=== PATIENT | female | born 1955 | race Caucasian/White ===

== ENCOUNTER 2018-06-12 05:37 | Day surgery (SDC) | payer BC ==
[~2018-06-12 05:37] MED LIST: Buffered Lidocaine 1% SYRIN* 1 ML/SYRINGE INTRADERM ONE
[2018-06-12] MEDS ORDERED: Heparin VIAL(*) 5000 UNITS/ML VIAL (FIVE THOUSAND) ONE (05:59)
[2018-06-12] MEDS ORDERED: Famotidine IV* 10 MG/ML 2 ML (20 mg) ONE (05:59)
[2018-06-12] MEDS ORDERED: ceFAZolin 2 GM PREMIX in ORs 2 GM/50 ML BAG IVPB ONE (05:59)
[2018-06-12] MEDS ORDERED: Dexamethasone IV* 4 MG/ML 1 ML (4 MG) ONE (05:59)
[2018-06-12] MEDS ORDERED: Dexamethasone IV* 4 MG/ML 1 ML (4 MG) IV SLOW PU ONE (06:00)
[2018-06-12] MEDS ORDERED: Famotidine IV* 10 MG/ML 2 ML (20 mg) IV ONE (06:00)
[2018-06-12] MEDS ORDERED: Lactated Ringers 1000 ML Bag* 1,000 ML IV SCH (06:00)
[2018-06-12] MEDS ORDERED: Bupivacaine 0.5% W/EPI SDV* 30 ML VIAL ONE ×2 (06:32→11:05)
[2018-06-12] MEDS ORDERED: Lidocain 1% EPI 1:100,000 * 30 ML MDV ONE (06:32)
[2018-06-12] MEDS ORDERED: Lidocaine 1% INJ* 10 MG/ML 30 ML SDV ONE (06:32)
[2018-06-12] MEDS ORDERED: ROPIVACAINE 5 MG/ML 30 ML BTL (0.5%) ONE (06:33)
[2018-06-12] MEDS ORDERED: fentaNYL* 50 MCG/ML 2 ML VIAL (100 MCG VIAL) ONE ×2 (07:17→11:51)
[2018-06-12] MEDS ORDERED: Midazolam* 1 MG/ML 2 ML VIAL (2 MG) ONE (07:18)
[2018-06-12] MEDS ORDERED: Atracurium* 10 MG/ML 10 ML VIAL ONE (07:18)
[2018-06-12] MEDS ORDERED: Lidocaine 1% MPF wEPI 200,000* 30 ML SDV ONE (07:25)
[2018-06-12] MEDS ORDERED: Scopolamine 1.5 mg* PATCH ONE (07:29)
[2018-06-12] MEDS ORDERED: Morphine VIAL* 10 MG/ML 1 ML VIAL ONE (07:51)
[2018-06-12] MEDS ORDERED: Lidocaine 2% PF * 5 ML VIAL ONE (07:52)
[2018-06-12] MEDS ORDERED: Propofol* 10 MG/ML 20 ML BTL ONE (07:52)
[2018-06-12] MEDS ORDERED: Naloxone* 0.4 MG/ML 1 ML VIAL IV PRN (08:16)
[2018-06-12] MEDS ORDERED: Morphine VIAL* 4 MG/ML VIAL (1 ml vial) IV PRN (08:16)
[2018-06-12] MEDS ORDERED: Acetaminophen TAB* 325 MG PO PRN (08:16)
[2018-06-12] MEDS ORDERED: PROCHLORPERAZINE INJ 5 MG/ML 2 ML VIAL IV PRN (08:16)
[2018-06-12] MEDS ORDERED: DiMENhydriNATE IV* 50 MG/ML VIAL IV PUSH PRN (08:16)
[2018-06-12] MEDS ORDERED: Ketorolac INJ* 30 MG/ML 1 ML VIAL IV PRN (08:16)
[2018-06-12] MEDS ORDERED: fentaNYL* 50 MCG/ML 2 ML VIAL (100 MCG VIAL) IV PRN (08:16)
[2018-06-12] MEDS ORDERED: HYDROcodone/ACETAMIN 5-325 MG* 1 TAB PO PRN (08:16)
[2018-06-12] MEDS ORDERED: Desflurane* 240 ML INH ONE (10:23)
[2018-06-12] MEDS ORDERED: Ondansetron INJ* 2 MG/ML VIAL ONE (10:44)
[2018-06-12] MEDS ORDERED: Ketorolac INJ* 30 MG/ML 1 ML VIAL ONE (11:52)
[2018-06-12] MEDS ORDERED: Morphine VIAL* 4 MG/ML VIAL (1 ml vial) ONE (12:25)
[2018-06-12] MEDS ORDERED: HYDROcodone/ACETAMIN 5-325 MG* 1 TAB ONE (14:22)
[2018-06-12 14:38] VITALS: BP 112/83
== END 2018-06-12 15:06 | disposition home or self-care (01) ==
LOC: OR 05:37 → EEVIPCON 05:37 → OR 15:06
PROVIDERS: ATTEND Plastic Surgery
DX: N62 Hypertrophy of breast (principal)
CPT/HCPCS: 88305; A9270-GY; A9272; J0690; J1100; J1644; J1885; J2001; J2250; J2270; J2405; J2704; J2795; J3010

== ENCOUNTER 2018-10-09 08:01 | Emergency (ER) | payer BC ==
[2018-10-09 10:26] VITALS: BP 129/86
--- NOTE | 2018-10-09 10:37 | UC ---
General HPI - HPI Summary HPI Summary: 62-year-old female presents with 4 day history of general malaise, fatigue, body aches, shaking chills, nausea, and anorexia. Reports no known tick bites. Denies fever, rash, nasal congestion, runny nose, ear pain, sore throat, cough , chest pain, shortness of breath, abdominal pain, vomiting, diarrhea, dysuria, frequency, urgency, hematuria, or vaginal discharge. - History of Current Complaint Chief Complaint: UCGeneralIllness Stated Complaint: COLDCHILLS/WEAK/NO ERI Time Seen by Provider: 10/09/18 10:30 Hx Obtained From: Patient Pain Intensity: 6 - Allergy/Home Medications Allergies/Adverse Reactions: Allergies Allergy/AdvReac Type Severity Reaction Status Date / Time No Known Allergies Allergy Verified 10/09/18 08:32 PMH/Surg Hx/FS Hx/Imm Hx Previously Healthy: Yes - Denies significant PMH - Surgical History Surgical History: Yes Surgery Procedure, Year, and Place: VASCULAR SURGERY 2007 [facility] - Family History Known Family History: Positive: Non-Contributory - Social History Occupation: Employed Full-time Lives: With Family Alcohol Use: Rare Substance Use Type: None Smoking Status (MU): Former Smoker When Did the Patient Quit Smoking/Using Tobacco: 5 1/2 YEARS AGO Review of Systems All Other Systems Reviewed And Are Negative: Yes Constitutional: Positive: Chills, Fatigue. Negative: Fever Skin: Negative: Rash ENT: Negative: Sore Throat, Ear Ache, Nasal Discharge, Sinus Congestion, Sinus Pain/Tenderness Respiratory: Negative: Shortness Of Breath, Cough Cardiovascular: Negative: Palpitations, Chest Pain Gastrointestinal: Positive: Nausea. Negative: Abdominal Pain, Vomiting, Diarrhea Genitourinary: Negative: Dysuria, Hematuria, Frequency, Urgency, Vaginal/Penile Burning, Vaginal/Penile Itching, Vaginal/Penile Discharge, Abnormal Bleeding Musculoskeletal: Positive: Myalgia Neurological: Negative: Headache Is Patient Immunocompromised?: No Physical Exam - Summary Physical Exam Summary: GENERAL APPEARANCE: Well developed, well nourished, alert and cooperative, and appears to be in no acute distress. EYES: Conjunctiva clear. No drainage. EARS: External auditory canals and tympanic membranes clear, hearing grossly intact. NOSE: No nasal discharge. THROAT: Pharynx normal. No tonsilar inflammation, swelling, exudate, or lesions. Uvula midline. NECK: Neck supple, non-tender without lymphadenopathy. CARDIAC: Normal S1 and S2. No S3, S4 or murmurs. Rhythm is regular. There is no peripheral edema, cyanosis or pallor. Extremities are warm and well perfused. Capillary refill is less than 2 seconds. Peripheral pulses intact. LUNGS: Clear to auscultation without rales, rhonchi, wheezing or diminished breath sounds. ABDOMEN: Positive bowel sounds. Soft, nondistended, nontender. No guarding or rebound. No masses or hepatosplenomegally. No CVA tenderness. MUSKULOSKELETAL: ROM intact to all extremities. No joint erythema or tenderness. Normal muscular development. Normal gait. SKIN: Skin normal color, texture and turgor with no lesions or eruptions. Triage Information Reviewed: Yes Vital Signs: Initial Vital Signs Temp 97.9 F 10/09/18 08:29 Pulse 88 10/09/18 08:29 Resp 18 10/09/18 08:29 BP 105/62 10/09/18 08:29 Pulse Ox 98 10/09/18 08:29 Vital Signs Reviewed: Yes Course/Dx - Course Course Of Treatment: 62-year-old female presents with 4 day history of general malaise, fatigue, body aches, shaking chills, nausea, and anorexia. Reports no known tick bites. Denies fever, rash, nasal congestion, runny nose, ear pain, sore throat, cough , chest pain, shortness of breath, abdominal pain, vomiting, diarrhea, dysuria, frequency, urgency, hematuria, or vaginal discharge. Afebrile. Vital signs stable. Exam was overall unremarkable. [id number] urinalysis showed 3+ protein, trace ketones, trace blood, 2+ bilirubin. She was given ondansetron 8 mg in the clinic with improvement in her nausea. I reviewed all the findings and discussed with the patient that her symptoms were likely from a viral syndrome however could not fully rule out other causes including the possibility of Lyme disease at this time. We will screen her for Lyme. I have provided her with a prescription for ondansetron 4 mg every 6 hours as needed for nausea or vomiting. Recommending symptomatic treatment for viral syndrome. She is to follow-up with her primary care provider in 3 days if symptoms are not improving. Anticipatory guidance and warning symptoms were reviewed with the patient. Verbalized understanding and agrees with plan of care. - Differential Dx - Multi-Symptom Differential Diagnoses: Urinary Tract Infection - Viral syndrome, Lyme, Other - Diagnoses Provider Diagnosis: Viral syndrome Discharge - Sign-Out/Discharge Documenting (check all that apply): Patient Departure All imaging exams completed and their final reports reviewed: No Studies - Discharge Plan Condition: Stable Disposition: HOME Prescriptions: Ondansetron [Ondansetron Odt] 4 mg PO Q6HR PRN #8 tab.rapdis PRN Reason: Nausea/Vomiting Patient Education Materials: Viral Syndrome (ED) Referrals: iLlly Fuentes PA [Primary Care Provider] - 3 Days Additional Instructions: Based on your history and exam I suspect that you may have a viral upper infection although I cannot fully rule out other possible causes. Viral infections do not respond to antibiotics and are limited to the treatment of symptoms. Viral infections typically run their course in 7-10 days. We will test you for Lyme disease today. It will take up to 72 hours for these results. We will contact you if treatment is needed. Your urine test showed no evidence of an infection. Drink plenty of fluids to avoid dehydration. Take over the counter acetaminophen (Tylenol) or ibuprofen (Advil, Motrin) according to directions as needed for pain or fever. Follow up with your primary care provider within 3 days if symptoms persist. Seek immediate medical attention in the emergency room if you have fever greater than 100.5 F despite taking acetaminophen or ibuprofen, have chest pain , difficulty breathing, have severe abdominal pain, persistent vomiting, or have any worsening of symptoms. - Billing Disposition and Condition Condition: STABLE Disposition: Home
[2018-10-09] MEDS ORDERED: Ondansetron ODT TAB* 4 MG PO ONE (10:46)
--- NOTE | 2018-10-10 15:57 | UC ---
- Progress Note Progress Note: Lyme screen (+) awaiting WB will treat if WB (+) Course/Dx - Diagnoses Provider Diagnoses: Viral syndrome Discharge - Sign-Out/Discharge Documenting (check all that apply): Post-Discharge Follow Up All imaging exams completed and their final reports reviewed: No Studies - Discharge Plan Condition: Stable Disposition: HOME Prescriptions: Ondansetron [Ondansetron Odt] 4 mg PO Q6HR PRN #8 tab.rapdis PRN Reason: Nausea/Vomiting Patient Education Materials: Viral Syndrome (ED) Referrals: Lilly Fuentes PA [Primary Care Provider] - 3 Days Additional Instructions: Based on your history and exam I suspect that you may have a viral upper infection although I cannot fully rule out other possible causes. Viral infections do not respond to antibiotics and are limited to the treatment of symptoms. Viral infections typically run their course in 7-10 days. We will test you for Lyme disease today. It will take up to 72 hours for these results. We will contact you if treatment is needed. Your urine test showed no evidence of an infection. Drink plenty of fluids to avoid dehydration. Take over the counter acetaminophen (Tylenol) or ibuprofen (Advil, Motrin) according to directions as needed for pain or fever. Follow up with your primary care provider within 3 days if symptoms persist. Seek immediate medical attention in the emergency room if you have fever greater than 100.5 F despite taking acetaminophen or ibuprofen, have chest pain , difficulty breathing, have severe abdominal pain, persistent vomiting, or have any worsening of symptoms. - Billing Disposition and Condition Condition: STABLE Disposition: Home
== END 2018-10-09 11:33 | disposition home or self-care (01) ==
LOC: UCEAST 08:01
DX: B34.9 Viral infection, unspecified (principal); Z87.891 Personal history of nicotine dependence
CPT/HCPCS: 36415; 81003; 86617; 86618; 99212; A9270-GY; G0463

== ENCOUNTER 2019-03-14 08:18 | Emergency (ER) | payer BC ==
[2019-03-14 08:44] LABS: ABS Lymphocytes 1.4 10^3/ul (1.0-4.8); ABS Monocytes 0.3 10^3/ul (0-0.8); ABS Neutrophils 3.2 10^3/ul (1.5-7.7); Eosinophil % 0.9 %; Hematocrit 40 % (35-47); Hemoglobin 13.5 g/dL (12.0-16.0); Lymphocyte % 28.1 %; Mean Corpuscular HGB Conc 34 g/dL (31-36); Mean Corpuscular Hemoglobin 30 pg (27-31); Mean Corpuscular Volume 88 fL (80-97); Mean Platelet Volume 8.9 fL (7.4-10.4); Nucleated Red Blood Cells % 0.1; Platelet Count 215 10^3/uL (150-450); Red Blood Count 4.54 10^6 /uL (3.70-4.87); Red Cell Distribution Width 14 % (10-15)
[2019-03-14 08:46] LABS: INR 0.97 (0.82-1.09)
--- NOTE | 2019-03-14 08:49 | ED ---
HPI Chest Pain - HPI Summary HPI Summary: Patient is a 63-year-old female with no significant past medical history and no family history of cardiovascular illness who presents to the emergency department today with a chief complaint of chest pain. She states this pain as a 3 out of 10 midsternal which radiates to her left arm. She states this pain in her left arm feels "hot". She also endorses. The "dizziness" when she experiences this pain. She is currently not experiencing any pain at this time. She states this pain began 2 days ago and she experiences that only while at work. She states yesterday when she had this pain she took 3 baby aspirin with some relief. She denies any pain with exertion. Patient states that work is within exquisitely stressful in the last week, and attributes her symptoms to this. She denies any associated symptoms such as diaphoresis, abdominal pain, shortness of breath, syncope. Patient denies any recent surgeries, long periods of travel or immobilization, Medications, history of malignancy. She denies any tobacco use, alcohol use, recreational drug use in the past. Her cardiovascular risk factors are: Obesity, hyperlipidemia, age. - History of Current Complaint Chief Complaint: EDChestPainROMI Time Seen by Provider: 03/14/19 08:46 Hx Obtained From: Patient Onset/Duration: Started Days Ago - 2 days ago Timing: Intermittent - No pain with exertion and only experienced while at work. , Lasting Minutes Initial Severity: Mild Current Severity: None Pain Intensity: 4 Pain Scale Used: 0-10 Numeric Chest Pain Location: Mid Sternal Chest Pain Radiates: Yes Chest Pain Radiates To:: Arm - Left arm Character: Pressure/Squeezing Aggravating Factor(s): Other: - Patient experiences these symptoms only while at work. Alleviating Factor(s): OTC Meds - Aspirin Associated Signs and Symptoms: Positive: Chest Pain, Anxiety - Patient attributes her pain to anxiety, Recent Stress - Patient states work is more stressful recently, Lightheadedness. Negative: Shortness of Breath, Syncope, Diaphoresis, Nausea, Abdominal Pain, Vomiting - Allergy/Home Medications Allergies/Adverse Reactions: Allergies Allergy/AdvReac Type Severity Reaction Status Date / Time No Known Allergies Allergy Verified 10/09/18 08:32 Home Medications: Home Medications NK [No Home Medications Reported] 03/14/19 [History Confirmed 03/14/19] PMH/Surg Hx/FS Hx/Imm Hx Sensory History: Reports: Hx Contacts or Glasses Denies: Hx Hearing Aid Opthamlomology History: Reports: Hx Contacts or Glasses - Cancer History Hx Chemotherapy: No - Surgical History Surgery Procedure, Year, and Place: VASCULAR SURGERY 2008 [facility] Hx Anesthesia Reactions: No Infectious Disease History: No Infectious Disease History: Denies: Traveled Outside the [place] in Last 30 Days - Family History Known Family History: Positive: Non-Contributory - Social History Alcohol Use: Rare Substance Use Type: Reports: None Smoking Status (MU): Former Smoker Review of Systems Constitutional: Negative Eyes: Negative ENT: Negative Cardiovascular: Negative Respiratory: Negative Gastrointestinal: Negative Skin: Negative Psychological: Normal All Other Systems Reviewed And Are Negative: Yes Physical Exam Triage Information Reviewed: Yes Vital Signs On Initial Exam: Initial Vitals Temp Pulse Resp BP Pulse Ox 98.4 F 74 18 147/69 98 03/14/19 08:22 03/14/19 08:22 03/14/19 08:22 03/14/19 08:22 03/14/19 08:22 Vital Signs Reviewed: Yes Appearance: Positive: Well-Appearing, No Pain Distress, Obese Skin: Positive: Warm, Skin Color Reflects Adequate Perfusion Head/Face: Positive: Normal Head/Face Inspection Eyes: Positive: Normal, EOMI, Conjunctiva Clear ENT: Positive: Hearing grossly normal Respiratory/Lung Sounds: Positive: Clear to Auscultation, Breath Sounds Present Cardiovascular: Positive: Normal, RRR, S1, S2 Abdomen Description: Positive: Nontender Bowel Sounds: Positive: Present Psychiatric: Positive: Normal AVPU Assessment: Alert Procedures - Sedation Patient Received Moderate/Deep Sedation with Procedure: No Diagnostics - Vital Signs Vital Signs Temp Pulse Resp BP Pulse Ox 03/14/19 08:22 98.4 F 74 18 147/69 98 - Laboratory Lab Results: Lab Results 03/14/19 03/14/19 Range/Units 08:31 08:31 WBC 5.0 (3.5-10.8) 10^3/uL RBC 4.54 (3.70-4.87) 10^6 /uL Hgb 13.5 (12.0-16.0) g/dL Hct 40 (35-47) % MCV 88 (80-97) fL MCH 30 (27-31) pg MCHC 34 (31-36) g/dL RDW 14 (10-15) % Plt Count 215 (150-450) 10^3/uL MPV 8.9 (7.4-10.4) fL Neut % (Auto) 65.1 % Lymph % (Auto) 28.1 % Geary % (Auto) 5.4 % Eos % (Auto) 0.9 % Baso % (Auto) 0.5 % Absolute Neuts (auto) 3.2 (1.5-7.7) 10^3/ul Absolute Lymphs (auto) 1.4 (1.0-4.8) 10^3/ul Absolute Monos (auto) 0.3 (0-0.8) 10^3/ul Absolute Eos (auto) 0.0 (0-0.6) 10^3/ul Absolute Basos (auto) 0.0 (0-0.2) 10^3/ul Absolute Nucleated RBC 0.0 10^3/ul Nucleated RBC % 0.1 INR (Anticoag Therapy) 0.97 (0.82-1.09) Result Diagrams: 03/14/19 08:31 03/14/19 08:31 Lab Statement: Any lab studies that have been ordered have been reviewed, and results considered in the medical decision making process. Re-Evaluation - Re-Evaluation First Eval Change: Improved Comment: Patient is resting comfortably on the stretcher Chest Pain Course/Dx - Course Course Of Treatment: Patient was evaluated in the emergency department for a chief complaint of chest pain. She was seen and examined. Laboratory studies and an EKG was performed. EKG showed no evidence of acute KS, there is no ST elevation, no evidence of ischemia, pathologic Q waves, prolongation of ID or QT intervals. All laboratory results returned and were all concerning. Troponin I resulted with a level of 0.00 at 01 05. Patient was urged to have serial troponins taken in order to better stratify her risk for acute coronary syndrome. Patient did not feel like waiting for the second troponin and thus after having the risks and benefits explained to her declined second troponin draw. Patients heart score was 3. Prior to discharge patient agreed to follow -up with her primary care provider for further evaluation of her chest pain today or tomorrow. She is given a work note to excuse her for her visit today in the emergency room and to excuse her from work tomorrow 03/15/2019. She was told to refrain from activities which require physical exertion such as sexual activity, heavy lifting, or higher stress situations. She was told to return to the emergency department immediately if she develops any new or worsening symptoms. - Chest Pain Differential Diagnosis/HQI/PQRI: Acute KS, ACS, Chest Wall, Pulmonary Embolism, Other: - Anxiety - Diagnoses Provider Diagnoses: Chest pain Discharge ED - Sign-Out/Discharge Documenting (check all that apply): Patient Departure - Discharge Plan Condition: Stable Disposition: HOME Patient Education Materials: Chest Pain (ED) Forms: *Work Release Referrals: Lilly Fuentes PA [Primary Care Provider] - 1 Day Additional Instructions: you were Seen in the emergency department today for chest pain. Due to an unknown cause of your chest pain I would like you to follow up with your primary care physician this afternoon or tomorrow for further workup. It was suggested to you to have a second serial troponin drawn in order to better stratify your risk for cardiovascular event but you declined. Due to the unknown cause of your chest pain please refrain from any high distress or high intensity activities such as heavy lifting, sexual activity, exercise until you are further evaluated by your primary care provider. I will write for you a note for out of work for today and tomorrow. If you develops any new symptoms or recurrent symptoms worsen please return to the emergency Department immediately. - Billing Disposition and Condition Condition: STABLE Disposition: Home - Attestation Statements Provider Attestation: pt seen by midlevel provider independently, based on their assessment, it was not necessary to present the case to me but I was available for consultation. I did not form a physician-patient relationship with the patient. The chart however, has been reviewed. am signing this note strictly in an administrative capacity.
[2019-03-14 08:57] LABS: Albumin 4.4 g/dL (3.2-5.2); Albumin/Globulin Ratio 1.7 (1-3); BUN/Creatinine Ratio 30.3 (8-20); Calcium 9.3 mg/dL (8.6-10.3); EGFR African American 77.8 (>60); EGFR Non-African American 64.3 (>60); Globulin 2.6 g/dL (2-4); Potassium 4.1 mmol/L (3.5-5.0); Total Bilirubin 0.5 mg/dL (0.2-1.0)
[2019-03-14 10:17] VITALS: BP 138/84
== END 2019-03-14 10:12 | disposition home or self-care (01) ==
LOC: ED 08:18
DX: R07.9 Chest pain, unspecified (principal); E66.9 Obesity, unspecified; E78.5 Hyperlipidemia, unspecified; Z87.891 Personal history of nicotine dependence
CPT/HCPCS: 36415; 80053; 83605; 84484; 85025; 85610; 93005; 99283